=== PATIENT | male | born 1950 ===

== ENCOUNTER 2024-08-31 15:09 | Emergency (ER) | payer MEDICARE, OTHER ==
[2024-08-31] MEDS ORDERED: EPINEPHrine 1:10,000 1 MG/10 ML Syringe IV ONE (15:10)
[2024-08-31] MEDS ORDERED: Sodium Bicarbonate 8.4% 50 MEQ/50 ML Syringe IV ONE (15:10)
== END 2024-08-31 15:16 | disposition expired ==
LOC: DL.ED 15:09
DX: I46.9 Cardiac arrest, cause unspecified (principal); E78.00 Pure hypercholesterolemia, unspecified; I10 Essential (primary) hypertension; K21.9 Gastro-esophageal reflux disease without esophagitis; Z79.82 Long term (current) use of aspirin; Z79.899 Other long term (current) drug therapy
CPT/HCPCS: 36680; 82947; 92950; 99285; J0171; J3490